=== PATIENT | male | born 1950 ===

== ENCOUNTER 2018-05-01 13:56 | Inpatient (IN) | payer MEDICARE, MEDICAID ==
[2018-05-01] MEDS ORDERED: Sodium Chloride 0.9% 1,000 ML IV ONE (14:38)
[2018-05-01] MEDS ORDERED: cefTRIAXone (Rocephin) 1 gm Inj ONE (15:10)
--- NOTE | 2018-05-01 15:11 | ED PDOC ---
HPI: Dental Pain/Injury Time Seen by Provider: 05/01/18 14:04 Chief Complaint (Nursing): Dental Pain Chief Complaint (Provider): Dental Pain History Per: Patient History/Exam Limitations: no limitations Onset/Duration Of Symptoms: Days (x7 days ago ) Current Symptoms Are (Timing): Still Present Additional Complaint(s): Patient is a 67 year old male who presents for evaluation of continuous facial swelling/pain and worsening dental infection since April 24. Patient was seen by PMD and was given a Rx for Keflex but he noticed no improvement with the medication. On April 28, he went to [facility] and they changed his antibiotics to Clindamycin and instructed him to take ibuprofen and discharged him. Patient presents to the emergency department today because his symptoms are worsening despite compliance with prescribed medications. Otherwise: (-) fever, (-) chills, (-) shortness of breath, (-) sore throat, (-) cough, (-) dizziness, (-) local trauma, (-) chest pain, (-) dyspnea (-) headache (-) earache (-) visual symptoms (-) difficulty swallowing or speaking PMD: Gene Schwartz Past Medical History Reviewed: Historical Data, Nursing Documentation, Vital Signs Vital Signs: Last Vital Signs Temp 97.6 F 05/01/18 13:59 Pulse 87 05/01/18 13:59 Resp 16 05/01/18 13:59 BP 119/78 05/01/18 13:59 Pulse Ox 98 05/01/18 13:59 - Medical History PMH: Atrial Fibrillation, COPD, Depression, Hepatitis, HTN, Pneumonia - Surgical History Surgical History: Coronary Stent, Pacemaker Other surgeries: defibrillator - Family History Family History: States: Unknown Family Hx - Social History Current smoker - smoking cessation education provided: No - Home Medications Home Medications: Ambulatory Orders Medication Instructions Recorded Carvedilol [Coreg] 12.5 mg PO Q12 05/01/18 Clindamycin [Cleocin] 300 mg PO Q8 05/01/18 Ibuprofen [Motrin Tab] 600 mg PO Q8 PRN 05/01/18 Oxymetazoline 0.05% [Afrin 0.05%] 2 spray CARTER Q12 PRN 05/01/18 Spironolactone [Aldactone] 25 mg PO DAILY 05/01/18 Zolpidem [Ambien] 10 mg PO HS 05/01/18 - Allergies Allergies/Adverse Reactions: Allergies Allergy/AdvReac Type Severity Reaction Status Date / Time No Known Allergies Allergy Verified 09/02/15 10:43 Review of Systems ROS Statement: Except As Marked, All Systems Reviewed And Found Negative Constitutional: Positive for: Other (facial swelling). Negative for: Fever, Chills Respiratory: Negative for: Cough, Shortness of Breath Neurological: Negative for: Headache, Dizziness Physical Exam - Reviewed Nursing Documentation Reviewed: Yes Vital Signs Reviewed: Yes - Physical Exam Comments: GENERAL APPEARANCE: Patient is awake, alert, oriented x 3, uncomfortable appearing. SKIN: Warm, dry; (-) cyanosis. ENMT: Large area of edema, erythema, induration, and warmth to the right side of face extending from the lateral eye orbit to the angle of the mandible to the right nare; Poor dentition throughout mouth; multiple cracked teeth with dental rot; (+) purulent drainage to right buccal mucosa (-) fluctuance. Pharynx: clear (-) tongue elevation, (-) exudate, (+) uvula midline. Airway patent: (-) stridor. (+) Decreased ROM of mandible. NECK: Supple, FROM RESPIRATORY: lungs clear to auscultation bilaterally (-) rales (-) rhonchi (-) wheezing. Speaking in full sentences, respirations nonlabored. CARDIAC: (-) irregularity - Laboratory Results Result Diagrams: 05/01/18 15:30 05/01/18 15:30 - ECG O2 Sat by Pulse Oximetry: 98 (RA) Pulse Ox Interpretation: Normal Medical Decision Making Medical Decision Making: Time: 14:30 Impression: facial cellulitis, dental abscess, rule out osteomyelitis of the mandible Plan: --CT maxillofacial with contrast, --CMP, lact acid, plasma --erythrocyte sedimentation rate --CBC with differential --Recephin 1 GM IV --Soidum chloride 1,000 ml --Vancomycin 1 GM IV --Blood culture --Toradol IVP 1620 Lactic acid WNL. CBC with leukocytosis, left shift. CMP with renal insufficiency and hyperkalemia. EKG ordered. CT changed to without contrast in light of renal function. Patient resting comfortably on re-evaluation in no distress. 1630 EKG: SR @ 90bpm (+) LAD (-) ST elevation, QTc 508 (+) occasional PVCs [address] FINDINGS: NASAL BONES: Unremarkable. ORBITS: Unremarkable. PARANASAL SINUSES/ MASTOIDS: There is mild mucosal thickening noted in the right maxillary sinus. MAXILLA: There is periodontal lucency seen in the right maxilla. No evidence of large bony destruction to suggest active osteomyelitis. MANDIBLE/ TEMPOROMANDIBULAR JOINTS: There are multiple periodontal lucency seen more prominent on the right. SKULL BASE: Unremarkable. TEMPORAL BONES: Middle ears and mastoid grossly unremarkable. OTHER FINDINGS: There are fluid collection and air noted adjacent to the right mandible and right maxillary bone suggestive of small abscess formation. Moderate soft tissue swelling and subcutaneous edema seen adjacent to the right mandible and right maxillary bone. IMPRESSION: Minute CT evidence of osteomyelitis. Multiple periodontal lucency seen in the right mandible and right maxillary bone suggestive of periodontal abscesses. Abscess formation noted adjacent to the right mandible and right maxillary bone associated with moderate subcutaneous soft tissue swelling and inflammatory changes. 17:[address] Figueredo, [facility] on-call. [address] Figueredo, agreeable to admission to telemetry. Requesting ID consult with Dr Rouse. Arrangements made for admission. Patient agreeable to admission. Vitals stable. Scribe Attestation: Documented by Ross Mcgowan, acting as a scribe for Rachelle Brantley. Provider Scribe Attestation: All medical record entries made by the Scribe were at my direction and personally dictated by me. I have reviewed the chart and agree that the record accurately reflects my personal performance of the history, physical exam, medical decision making, and the department course for this patient. I have also personally directed, reviewed, and agree with the discharge instructions and disposition. Disposition - Clinical Impression Clinical Impression: Dental abscess, Facial cellulitis, Dental infection, Renal insufficiency, Hyperkalemia - Patient ED Disposition Is Patient to be Admitted: Yes Discussed With : uyen Counseled Patient/Family Regarding: Studies Performed, Diagnosis - Disposition Disposition Time: 17:20 Condition: STABLE - Pt Status Changed To: Hospital Disposition Of: Inpatient - Admit Certification Admit to Inpatient:: After my assessment, the patient will require hospitalization for at least two midnights. This is because of the severity of symptoms shown, intensity of services needed, and/or the medical risk in this patient being treated as an outpatient. - POA Present On Arrival: None Results - Diagnostic Imaging Results Radiology Results Maxillofacial CT 05/01/18 16:18 IMPRESSION: Minute CT evidence of osteomyelitis. Multiple periodontal lucency seen in the right mandible and right maxillary bone suggestive of periodontal abscesses. Abscess formation noted adjacent to the right mandible and right maxillary bone associated with moderate subcutaneous soft tissue swelling and inflammatory changes.. - Lab Results Lab Results: 05/01/18 05/01/18 05/01/18 15:30 15:30 15:30 WBC 18.8 H RBC 5.37 Hgb 14.4 Hct 45.0 MCV 83.8 MCH 26.8 L MCHC 32.0 L RDW 15.4 H Plt Count 247 MPV 9.7 Neut % (Auto) 85.4 H Lymph % (Auto) 6.0 L [place] % (Auto) 6.5 Eos % (Auto) 1.6 Baso % (Auto) 0.5 Neut # (Auto) 16.0 H Lymph # (Auto) 1.1 [place] # (Auto) 1.2 H Eos # (Auto) 0.3 Baso # (Auto) 0.1 Neutrophils % (Manual) Pending Lymphocytes % (Manual) Pending Monocytes % (Manual) Pending Platelet Estimate Pending ESR Pending Sodium 134 Potassium 5.2 H Chloride 105 Carbon Dioxide 16 L Anion Gap 18 BUN 42 H Creatinine 2.7 H Est GFR ( Amer) 29 Est GFR (Non-Af Amer) 24 Random Glucose 250 H Lactic Acid 1.2 Calcium 9.0 Total Bilirubin 1.5 H AST 13 L ALT 19 L Alkaline Phosphatase 259 H Total Protein 8.1 Albumin 3.7 Globulin 4.4 H Albumin/Globulin Ratio 0.8 L
[2018-05-01 15:38] LABS: BASO # 0.1 K/uL (0.0-0.2); BASO % 0.5 % (0.0-2.0); EOS # 0.3 K/uL (0.0-0.7); EOS % 1.6 % (0.0-4.0); HEMOGLOBIN 14.4 g/dL (12.0-18.0); LYMPH # 1.1 K/uL (1.0-4.3); MEAN CELL VOLUME 83.8 fl (80.0-94.0); MEAN CORPUSCULAR HEMOGLOBIN 26.8 pg (27.0-31.0); MEAN PLATELET VOLUME 9.7 fl (7.2-11.7); MONO # 1.2 K/uL (0.0-0.8); MONO % 6.5 % (0.0-10.0); NEUT % 85.4 % (50.0-75.0); PLATELET COUNT 247 K/uL (130-400); RBC 5.37 Mil/uL (4.40-5.90); RED CELL DISTRIBUTION WIDTH 15.4 % (11.5-14.5); WHITE BLOOD COUNT 18.8 K/uL (4.8-10.8)
[2018-05-01 15:56] LABS: ALB/GLOB RATIO 0.8 (1.0-2.1); ALBUMIN 3.7 g/dL (3.5-5.0)
--- NOTE | 2018-05-01 17:05 | CT ---
Date of service: 05/01/2018 PROCEDURE: CT MAXILLOFACIAL BONES WITHOUT CONTRAST HISTORY: facial abscess/cellulitis, r/o osteo of mandible COMPARISON: None available. TECHNIQUE: Contiguous axial CT images of the maxillofacial bones were obtained. Coronal and sagittal reformats were generated. Radiation dose: Total exam DLP = 821.77 mGy-cm. This CT exam was performed using one or more of the following dose reduction techniques: Automated exposure control, adjustment of the mA and/or kV according to patient size, and/or use of iterative reconstruction technique. FINDINGS: NASAL BONES: Unremarkable. ORBITS: Unremarkable. PARANASAL SINUSES/ MASTOIDS: There is mild mucosal thickening noted in the right maxillary sinus. MAXILLA: There is periodontal lucency seen in the right maxilla. No evidence of large bony destruction to suggest active osteomyelitis. MANDIBLE/ TEMPOROMANDIBULAR JOINTS: There are multiple periodontal lucency seen more prominent on the right. SKULL BASE: Unremarkable. TEMPORAL BONES: Middle ears and mastoid grossly unremarkable. OTHER FINDINGS: There are fluid collection and air noted adjacent to the right mandible and right maxillary bone suggestive of small abscess formation. Moderate soft tissue swelling and subcutaneous edema seen adjacent to the right mandible and right maxillary bone. IMPRESSION: Minute CT evidence of osteomyelitis. Multiple periodontal lucency seen in the right mandible and right maxillary bone suggestive of periodontal abscesses. Abscess formation noted adjacent to the right mandible and right maxillary bone associated with moderate subcutaneous soft tissue swelling and inflammatory changes..
[2018-05-01] MEDS ORDERED: Vancomycin 1 g Inj ONE ×2 (17:08→17:21)
[2018-05-01 20:02] LABS: BANDS 1 % (0-2); BASOPHIL 1 % (0-2); EOSINOPHIL 2 % (0-7); LYMPHOCYTE 9 % (20-50); MONOCYTE 7 % (0-10); NEUTROPHIL 80 % (42-75); PLATELET ESTIMATE NORMAL (NORMAL); TOTAL CELLS COUNTED 100
[2018-05-01 20:03] LABS: TOXIC GRANULATION PRESENT
[2018-05-01 20:04] LABS: HYPOCHROMIC SLIGHT
[2018-05-01 20:58] LABS: ERYTHROCYTE SEDIMENTATION RATE 76 mm/hr (0-20)
[2018-05-01] MEDS: Sodium Chloride 0.9% 1,000 ML IV SCH (22:25)
[2018-05-02 05:42] LABS: HEMOGLOBIN 12.2 g/dL (12.0-18.0); MEAN CELL VOLUME 83.4 fl (80.0-94.0); MEAN CORPUSCULAR HEMOGLOBIN 26.7 pg (27.0-31.0); RBC 4.58 Mil/uL (4.40-5.90); RED CELL DISTRIBUTION WIDTH 15.2 % (11.5-14.5); WHITE BLOOD COUNT 12.4 K/uL (4.8-10.8)
[2018-05-02] MEDS: Sodium Chloride 0.9% 1,000 ML IV SCH ×3 (05:58→17:50)
[2018-05-02 06:05] LABS: ALB/GLOB RATIO 0.8 (1.0-2.1); ALBUMIN 2.8 g/dL (3.5-5.0); CALCIUM 8.1 mg/dL (8.4-10.2)
--- NOTE | 2018-05-02 06:21 | CARD ---
APPROVED REPORT Date of service: 05/01/2018 EKG Measurement Heart [id number] <Conclusion> Sinus rhythm with occasional premature ventricular complexes Left axis deviation Nonspecific intraventricular block Possible Lateral infarct, age undetermined Abnormal ECG
[2018-05-02] MEDS ORDERED: Sod Polystyrene Sulf 15 gm/60 ml Susp PO ONE (09:00)
--- NOTE | 2018-05-02 10:04 | CP.PCM.HP ---
History of Present Illness - History of Present Illness History of Present Illness: Pt is a 67 y/ male presenting to [facility] with complaints of right sided facial swelling and pain for the past 2 weeks. States he was evalauted by his PMD who gave him Keflex but it did not help to he went to [facility] and was given po Clindamycin. He states he only took this for one day and decided to come here since it was not improving. He reports feeling nasally congested and has had reduced difficulty swallowing food but no difficulty swallowing liquids. Otherwise denies SOB, CP, cough, fever/chills, mouth discharge, neck stiffness, headaches, n/v/d, dysuria, sick contacts or recent travel. PMD: Gene Schwartz PMHx: Afibb, CHF, COPD, HTN, Hepatic Cirrhosis, Cardiac pacemaker (placed 3 years ago), Depression Meds: Coreg, Aldactone, Ambien NKDA Social: Past hx of heavy alcohol, quit 8 years ago as per pt, former smoker 30pack years, denies illicit drug use Present on Admission - Present on Admission Any Indicators Present on Admission: No Past Patient History - Infectious Disease Hx of Infectious Diseases: None - Tetanus Immunizations Tetanus Immunization: Unknown - Past Medical History & Family History Past Medical History?: Yes - Past Social History Smoking Status: Former Smoker - CARDIAC Hx Cardiac Disorders: Yes Hx Atrial Fibrillation: Yes Hx Internal Defibrillator: Yes - PULMONARY Hx Respiratory Disorders: Yes Hx Chronic Obstructive Pulmonary Disease (COPD): Yes - NEUROLOGICAL Hx Neurological Disorder: No - HEENT Hx HEENT Problems: Yes Hx Cataracts: Yes - RENAL Hx Chronic Kidney Disease: No - ENDOCRINE/METABOLIC Hx Endocrine Disorders: Yes Hx Diabetes Mellitus Type 2: Yes - HEMATOLOGICAL/ONCOLOGICAL Hx Blood Disorders: Yes Hx AIDS: No Hx Cirrhosis: Yes Hx Human Immunodeficiency Virus (HIV): No - INTEGUMENTARY Hx Dermatological Problems: No - MUSCULOSKELETAL/RHEUMATOLOGICAL Hx Musculoskeletal Disorders: No Hx Falls: No - GASTROINTESTINAL Hx Gastrointestinal Disorders: Yes Other/Comment: Cirrhosis, HCV - GENITOURINARY/GYNECOLOGICAL Hx Genitourinary Disorders: No - PSYCHIATRIC Hx Psychophysiologic Disorder: Yes Hx Depression: Yes Hx Substance Use: No - SURGICAL HISTORY Hx Surgeries: Yes Hx Coronary Stent: Yes - ANESTHESIA Hx Anesthesia: Yes Hx Anesthesia Reactions: No Hx Malignant Hyperthermia: No Meds Allergies/Adverse Reactions: Allergies Allergy/AdvReac Type Severity Reaction Status Date / Time No Known Allergies Allergy Verified 09/02/15 10:43 Physical Exam - Constitutional Appears: No Acute Distress - Head Exam Head Exam: NORMAL INSPECTION - Eye Exam Eye Exam: Normal appearance. absent: Nystagmus, Periorbital swelling, Scleral icterus - ENT Exam ENT Exam: Mucous Membranes Moist Additional comments: Moderately enlarged right facial swelling, erythema, warmth and diffuse tenderness along the mandible and extending to maxillary bone. Mildly fluctuant. Buccal mucosa notable for mucosal swelling, erythema, and white patchy exudates, foul odor breath, poor dentition with multiple missing teeth. No periorbital or orbital swelling. TMJ- Full ROM, limited with pain - Neck Exam Neck exam: Positive for: Full Rom. Negative for: Meningismus - Respiratory Exam Respiratory Exam: Clear to Auscultation Bilateral, Rales, Wheezes Additional comments: Pacemaker noted - Cardiovascular Exam Cardiovascular Exam: REGULAR RHYTHM, +S1, +S2. absent: Systolic Murmur - GI/Abdominal Exam GI & Abdominal Exam: Normal Bowel Sounds, Soft. absent: Tenderness - Extremities Exam Extremities exam: Positive for: normal inspection - Neurological Exam Neurological exam: Alert, Oriented x3 - Psychiatric Exam Psychiatric exam: Normal Affect - Skin Skin Exam: Normal Color Results - Vital Signs Recent Vital Signs: Last Vital Signs Temp 97.6 F 05/02/18 08:11 Pulse 86 05/02/18 08:45 Resp 20 05/02/18 08:11 BP 128/77 05/02/18 08:45 Pulse Ox 98 05/02/18 08:11 - Labs Result Diagrams: 05/02/18 04:25 05/02/18 04:25 Labs: Laboratory Results - last 24 hr 05/01/18 05/01/18 05/01/18 15:30 15:30 15:30 WBC 18.8 H RBC 5.37 Hgb 14.4 Hct 45.0 MCV 83.8 MCH 26.8 L MCHC 32.0 L RDW 15.4 H Plt Count 247 MPV 9.7 Neut % (Auto) 85.4 H Lymph % (Auto) 6.0 L [place] % (Auto) 6.5 Eos % (Auto) 1.6 Baso % (Auto) 0.5 Neut # (Auto) 16.0 H Lymph # (Auto) 1.1 [place] # (Auto) 1.2 H Eos # (Auto) 0.3 Baso # (Auto) 0.1 Neutrophils % (Manual) 80 H Band Neutrophils % 1 Lymphocytes % (Manual) 9 L Monocytes % (Manual) 7 Eosinophils % (Manual) 2 Basophils % (Manual) 1 Toxic Granulation Present Platelet Estimate Normal Hypochromasia (manual) Slight ESR 76 H Sodium 134 Potassium 5.2 H Chloride 105 Carbon Dioxide 16 L Anion Gap 18 BUN 42 H Creatinine 2.7 H Est GFR ( Amer) 29 Est GFR (Non-Af Amer) 24 POC Glucose (mg/dL) Random Glucose 250 H Lactic Acid 1.2 Calcium 9.0 Total Bilirubin 1.5 H AST 13 L ALT 19 L Alkaline Phosphatase 259 H Total Protein 8.1 Albumin 3.7 Globulin 4.4 H Albumin/Globulin Ratio 0.8 L Triglycerides Cholesterol LDL Cholesterol Direct HDL Cholesterol 05/01/18 05/02/18 05/02/18 21:43 04:25 04:25 WBC 12.4 H RBC 4.58 Hgb 12.2 D Hct 38.2 MCV 83.4 MCH 26.7 L MCHC 32.0 L RDW 15.2 H Plt Count 207 MPV Neut % (Auto) Lymph % (Auto) [place] % (Auto) Eos % (Auto) Baso % (Auto) Neut # (Auto) Lymph # (Auto) [place] # (Auto) Eos # (Auto) Baso # (Auto) Neutrophils % (Manual) Band Neutrophils % Lymphocytes % (Manual) Monocytes % (Manual) Eosinophils % (Manual) Basophils % (Manual) Toxic Granulation Platelet Estimate Hypochromasia (manual) ESR Sodium 136 Potassium 5.1 H Chloride 108 H Carbon Dioxide 17 L Anion Gap 16 BUN 43 H Creatinine 2.5 H Est GFR ( Amer) 32 Est GFR (Non-Af Amer) 26 POC Glucose (mg/dL) 196 H Random Glucose 201 H Lactic Acid Calcium 8.1 L Total Bilirubin 1.1 AST 9 L D ALT 16 L Alkaline Phosphatase 180 H D Total Protein 6.3 Albumin 2.8 L D Globulin 3.5 Albumin/Globulin Ratio 0.8 L Triglycerides 186 H Cholesterol 116 LDL Cholesterol Direct 76 HDL Cholesterol 16 L Assessment & Plan - Assessment and Plan (Free Text) Assessment: 67 y/o male admitted with Periodontal Abscess confirmed on Maxillofacial CT, EMILIANO, Hyperkalemia -ENT consulted -General Surgery Consulted -Leukocytosis improving, ESR 76 -Kayexelate 30mg, repeat BMP in afternoon -EMILIANO likely pre-renal in setting of poor po intake, Nephrology consulted -IV fluids NS 125cc/hr -C/W empiric ABx coverage- Vanco and Zosyn. S/P Rocephin x1 in ED -ID Consulted, Dr. Rouse -Puried diet, Swallow eval ordered -Home meds resumed D/W Dr. Figueredo
--- NOTE | 2018-05-02 13:00 | CP.PCM.CON ---
History of Present Illness - History of Present Illness History of Present Illness: Patient is a 67 years of age male who presented to the emergency room with right facial swelling that has been increasing and getting worse and seen in the emergency room given antibiotics Keflex couple days ago and then when he visited the emergency room he was given clindamycin as well. And the CAT scan was suspicious of osteomyelitis and . Was called to see this patient for abnormal kidney function. Which noted rising BUN and creatinine. Patient is not aware about past medical history related to chronic or acute kidney disease. Patient stated that he was diabetic but is no longer taking medication for diabetes. PMHx: Afibb, CHF, COPD, HTN, Hepatic Cirrhosis, Cardiac device (pacemaker/defibrillator?) (placed 3 years ago), Depression Meds: Coreg, Aldactone, Ambien NKDA Social: Past hx of heavy alcohol, quit 8 years ago as per pt, former smoker 30pack years, denies illicit drug use abscess Review of Systems - Constitutional Constitutional: Anorexia. absent: Chills - EENT Eyes: absent: Exophthalmos Nose/Mouth/Throat: As Per HPI, Sinus Pressure. absent: Epistaxis, Post Nasal Drip Additional comments: Right facial swollen completely - Cardiovascular Cardiovascular: absent: Acrocyanosis, Dyspnea, Edema, Palpitations - Respiratory Respiratory: absent: Cough, Dyspnea - Gastrointestinal Gastrointestinal: absent: Abdominal Pain, Coffee Ground Emesis, Vomiting - Genitourinary Genitourinary: Nocturia - Neurological Neurological: absent: Syncope - Hematologic/Lymphatic Hematologic: absent: Easy Bleeding Past Patient History - Infectious Disease Hx of Infectious Diseases: None - Tetanus Immunizations Tetanus Immunization: Unknown - Past Medical History & Family History Past Medical History?: Yes - Past Social History Smoking Status: Former Smoker - CARDIAC Hx Cardiac Disorders: Yes Hx Atrial Fibrillation: Yes Hx Internal Defibrillator: Yes - PULMONARY Hx Respiratory Disorders: Yes Hx Chronic Obstructive Pulmonary Disease (COPD): Yes - NEUROLOGICAL Hx Neurological Disorder: No - HEENT Hx HEENT Problems: Yes Hx Cataracts: Yes - RENAL Hx Chronic Kidney Disease: No - ENDOCRINE/METABOLIC Hx Endocrine Disorders: Yes Hx Diabetes Mellitus Type 2: Yes - HEMATOLOGICAL/ONCOLOGICAL Hx Blood Disorders: Yes Hx AIDS: No Hx Cirrhosis: Yes Hx Human Immunodeficiency Virus (HIV): No - INTEGUMENTARY Hx Dermatological Problems: No - MUSCULOSKELETAL/RHEUMATOLOGICAL Hx Musculoskeletal Disorders: No Hx Falls: No - GASTROINTESTINAL Hx Gastrointestinal Disorders: Yes Other/Comment: Cirrhosis, HCV - GENITOURINARY/GYNECOLOGICAL Hx Genitourinary Disorders: No - PSYCHIATRIC Hx Psychophysiologic Disorder: Yes Hx Depression: Yes Hx Substance Use: No - SURGICAL HISTORY Hx Surgeries: Yes Hx Coronary Stent: Yes - ANESTHESIA Hx Anesthesia: Yes Hx Anesthesia Reactions: No Hx Malignant Hyperthermia: No Meds Allergies/Adverse Reactions: Allergies Allergy/AdvReac Type Severity Reaction Status Date / Time No Known Allergies Allergy Verified 09/02/15 10:43 - Medications Medications: Current Medications Carvedilol (Coreg) 12.5 mg PO Q12 [facility] Last Admin: 05/02/18 08:45 Dose: 12.5 mg Heparin Sodium (Porcine) (Heparin) 5,000 units SC Q12 [facility]; Protocol Vancomycin HCl 1 gm/ Sodium (Chloride) 250 mls @ 166.667 mls/hr IVPB DAILY [facility]; Protocol Last Admin: 05/02/18 10:28 Dose: 166.667 mls/hr Sodium Chloride (Sodium Chloride 0.9%) 1,000 mls @ 125 mls/hr IV .Q8H [facility] Last Admin: 05/02/18 08:49 Dose: 125 mls/hr Piperacillin Sod/Tazobactam (Sod 2.25 gm/ Sodium Chloride) 100 mls @ 100 mls/hr IVPB Q8 [facility]; Protocol Last Admin: 05/02/18 08:50 Dose: 100 mls/hr Ketorolac Tromethamine (Toradol) 30 mg IVP Q6 PRN PRN Reason: Pain, moderate (4-7) Morphine Sulfate (Morphine) 2 mg IVP Q6 PRN PRN Reason: Pain, severe (8-10) Last Admin: 05/02/18 01:00 Dose: 2 mg Oxymetazoline HCl (Nasal Decongestant 15 Ml) 2 spr NS Q12 [facility] Last Admin: 05/02/18 10:27 Dose: 2 spr Spironolactone (Aldactone) 25 mg PO DAILY [facility] Last Admin: 05/02/18 08:46 Dose: 25 mg Physical Exam - Constitutional Appears: No Acute Distress - Eye Exam Eye Exam: absent: Conjunctival injection - ENT Exam ENT Exam: Mucous Membranes Moist Additional comments: Right facial swollen and tenderness and firm - Neck Exam Neck exam: Negative for: Thyromegaly - Respiratory Exam Respiratory Exam: NORMAL BREATHING PATTERN. absent: Chest Wall Tenderness - Cardiovascular Exam Cardiovascular Exam: absent: Gallop, JVD, Rubs - GI/Abdominal Exam GI & Abdominal Exam: Normal Bowel Sounds. absent: Guarding - Extremities Exam Extremities exam: Negative for: calf tenderness, pedal edema, tenderness - Back Exam Back exam: absent: CVA tenderness (L), CVA tenderness (R) - Neurological Exam Neurological exam: Alert - Psychiatric Exam Psychiatric exam: Normal Affect Results - Vital Signs Recent Vital Signs: Last Vital Signs Temp 98.3 F 05/02/18 12:25 Pulse 69 05/02/18 12:25 Resp 20 05/02/18 12:25 BP 135/79 05/02/18 12:25 Pulse Ox 99 05/02/18 12:25 - Labs Result Diagrams: 05/02/18 04:25 05/02/18 04:25 Labs: Laboratory Results - last 24 hr 05/01/18 05/01/18 05/01/18 15:30 15:30 15:30 WBC 18.8 H RBC 5.37 Hgb 14.4 Hct 45.0 MCV 83.8 MCH 26.8 L MCHC 32.0 L RDW 15.4 H Plt Count 247 MPV 9.7 Neut % (Auto) 85.4 H Lymph % (Auto) 6.0 L [place] % (Auto) 6.5 Eos % (Auto) 1.6 Baso % (Auto) 0.5 Neut # (Auto) 16.0 H Lymph # (Auto) 1.1 [place] # (Auto) 1.2 H Eos # (Auto) 0.3 Baso # (Auto) 0.1 Neutrophils % (Manual) 80 H Band Neutrophils % 1 Lymphocytes % (Manual) 9 L Monocytes % (Manual) 7 Eosinophils % (Manual) 2 Basophils % (Manual) 1 Toxic Granulation Present Platelet Estimate Normal Hypochromasia (manual) Slight ESR 76 H Sodium 134 Potassium 5.2 H Chloride 105 Carbon Dioxide 16 L Anion Gap 18 BUN 42 H Creatinine 2.7 H Est GFR ( Amer) 29 Est GFR (Non-Af Amer) 24 POC Glucose (mg/dL) Random Glucose 250 H Lactic Acid 1.2 Calcium 9.0 Total Bilirubin 1.5 H GGT AST 13 L ALT 19 L Alkaline Phosphatase 259 H Total Protein 8.1 Albumin 3.7 Globulin 4.4 H Albumin/Globulin Ratio 0.8 L Triglycerides Cholesterol LDL Cholesterol Direct HDL Cholesterol Random Vancomycin 05/01/18 05/02/18 05/02/18 21:43 04:25 04:25 WBC 12.4 H RBC 4.58 Hgb 12.2 D Hct 38.2 MCV 83.4 MCH 26.7 L MCHC 32.0 L RDW 15.2 H Plt Count 207 MPV Neut % (Auto) Lymph % (Auto) [place] % (Auto) Eos % (Auto) Baso % (Auto) Neut # (Auto) Lymph # (Auto) [place] # (Auto) Eos # (Auto) Baso # (Auto) Neutrophils % (Manual) Band Neutrophils % Lymphocytes % (Manual) Monocytes % (Manual) Eosinophils % (Manual) Basophils % (Manual) Toxic Granulation Platelet Estimate Hypochromasia (manual) ESR Sodium 136 Potassium 5.1 H Chloride 108 H Carbon Dioxide 17 L Anion Gap 16 BUN 43 H Creatinine 2.5 H Est GFR ( Amer) 32 Est GFR (Non-Af Amer) 26 POC Glucose (mg/dL) 196 H Random Glucose 201 H Lactic Acid Calcium 8.1 L Total Bilirubin 1.1 GGT 63 AST 9 L D ALT 16 L Alkaline Phosphatase 180 H D Total Protein 6.3 Albumin 2.8 L D Globulin 3.5 Albumin/Globulin Ratio 0.8 L Triglycerides 186 H Cholesterol 116 LDL Cholesterol Direct 76 HDL Cholesterol 16 L Random Vancomycin 05/02/18 05/02/18 05/02/18 05:21 11:11 12:05 WBC RBC Hgb Hct MCV MCH MCHC RDW Plt Count MPV Neut % (Auto) Lymph % (Auto) [place] % (Auto) Eos % (Auto) Baso % (Auto) Neut # (Auto) Lymph # (Auto) [place] # (Auto) Eos # (Auto) Baso # (Auto) Neutrophils % (Manual) Band Neutrophils % Lymphocytes % (Manual) Monocytes % (Manual) Eosinophils % (Manual) Basophils % (Manual) Toxic Granulation Platelet Estimate Hypochromasia (manual) ESR Sodium Potassium Chloride Carbon Dioxide Anion Gap BUN Creatinine Est GFR ( Amer) Est GFR (Non-Af Amer) POC Glucose (mg/dL) 203 H 238 H Random Glucose Lactic Acid Calcium Total Bilirubin GGT AST ALT Alkaline Phosphatase Total Protein Albumin Globulin Albumin/Globulin Ratio Triglycerides Cholesterol LDL Cholesterol Direct HDL Cholesterol Random Vancomycin 12.1 Assessment & Plan (1) EMILIANO (acute kidney injury) Assessment and Plan: Rule out acute kidney injury most likely related to multifactorial including antibiotic, cellulitis, abscess Hyperkalemia related to the above serum potassium borderline Dental abscess Mellitus of the right face osteomyelitis ? Recommendation and plan To get stat vancomycin level Adjust antibiotics as per renal dose Discussed with the nurse practitioner Start spot urine for sodium osmolarity and creatinine Stat urinalysis Status: Acute (2) Dental abscess Status: Acute (3) Dental infection Status: Acute (4) Facial cellulitis Status: Acute
--- NOTE | 2018-05-02 13:14 | CP.PCM.CON ---
History of Present Illness - History of Present Illness History of Present Illness: 67 year old male who presents for evaluation of continuous facial swelling/pain and worsening dental infection since April 24.Patient presents to the emergency department because his symptoms are worsening despite compliance with prescribed medications including Keflex then Clinda ID consulted for this - Medical History PMH: Atrial Fibrillation, COPD, Depression, Hepatitis, HTN, Pneumonia - Surgical History Surgical History: Coronary Stent, Pacemaker Other surgeries: defibrillator Review of Systems - Review of Systems All systems: reviewed and no additional remarkable complaints except - Constitutional Constitutional: As Per HPI, Anorexia, Chills. absent: Fever - EENT Eyes: absent: As Per HPI, Blind Spots, Blurred Vision, Change in Vision, Decreased Night Vision, Diplopia, Discharge, Dry Eye, Exophthalmos, Floaters, Irritation, Itchy Eyes, Loss of Peripheral Vision, Pain, Photophobia, Requires Corrective Lenses, Sees Flashes, Spots in Vision, Tunnel Vision, Other Visual Disturbances, Loss of Vision, Other Ears: absent: As Per HPI, Decreased Hearing, Ear Discharge, Ear Pain, Tinnitus, Abnormal Hearing, Disequilibrium, Dizziness, Other Nose/Mouth/Throat: As Per HPI - Cardiovascular Cardiovascular: absent: As Per HPI, Acrocyanosis, Chest Pain, Chest Pain at Rest, Chest Pain with Activity, Claudication, Diaphoresis, Dyspnea, Dyspnea on Exertion, Edema, Irregular Heart Rhythm, Pain Radiating to Arm/Neck/Jaw, Leg Edema, Leg Ulcers, Lightheadedness, Orthopnea, Palpitations, Paroxysmal Nocturnal Dyspnea, Pedal Edema, Radiating Pain, Rapid Heart Rate, Slow Heart Rate, Syncope, Other - Respiratory Respiratory: absent: As Per HPI, Cough, Dyspnea, Hemoptysis, Dyspnea on Exertion, Wheezing, Snoring, Stridor, Pain on Inspiration, Chest Congestion, Excessive Mucous Production, Change in Mucous Color, Pain with Coughing, Other - Gastrointestinal Gastrointestinal: absent: As Per HPI, Abdominal Pain, Belching, Bloating, Change in Bowel Habits, Change in Stool Character, Coffee Ground Emesis, Constipation, Cramping, Diarrhea, Dyspepsia, Dysphagia, Early Satiety, Excessive Flatus, Fecal Incontinence, Heartburn, Hematemesis, Hematochezia, Loose Stools, Melena, Nausea, Odynophagia, Temesmus, Vomiting, Other - Genitourinary Genitourinary: absent: As Per HPI, Change in Urinary Stream, Difficulty Urinating, Dysuria, Flank Pain, Hematuria, Pyuria, Nocturia, Urinary Incontinence, Urinary Frequency, Urinary Hesitance, Urinary Urgency, Voiding Freq/Small Amts, Freq UTI, Hx Renal/Bladder Calculi, Hx /Renal Surgery, Bladder Distension, Other - Musculoskeletal Musculoskeletal: absent: As Per HPI, Abnormal Gait, Arthralgias, Atrophy, Back Pain, Deformity, Joint Swelling, Limited Range of Motion, Loss of Height, Muscle Cramps, Muscle Weakness, Myalgias, Neck Pain, Numbness, Radiating Pain into Limb, Stiffness, Tingling, Other - Integumentary Integumentary: absent: As Per HPI, Acne, Alopecia, Bleeding Lesions, Change in Hair, Change in Nails, Change in Pigmentation, Changing Lesions, Dry Skin, Erythema, Furuncle, Hirsutism, Lesions, New Lesions, Non-Healing Lesions, Phot osensitivity, Pruritus, Rash, Skin Pain, Skin Ulcer, Sores, Striae, Swelling, Unusual Bruising, Wounds, Jaundice, Other - Neurological Neurological: absent: As Per HPI, Abnormal Gait, Abnormal Hearing, Abnormal Movements, Abnormal Speech, Behavioral Changes, Burning Sensations, Confusion, Convulsions, Disequilibrium, Dizziness, Numbness, Focal Weakness, Frequent Falls, Headaches, Lack of Coordination, Loss of Vision, Memory Loss, Paresthesias, Radicular Pain, Restless Legs, Sensory Deficit, Syncope, Tingling, Tremor, Vertigo, Weakness, Other Visual Disturbances, Other - Psychiatric Psychiatric: absent: As Per HPI, Abnormal Sleep Pattern, Anhedonia, Anxiety, Auditory Hallucinations, Behavioral Changes, Change in Appetite, Change in Libido, Confusion, Depression, Difficulty Concentrating, Hallucinations, Homicidal Ideation, Hopelessness, Irritability, Memory Loss, Mood Swings, Panic Attacks, Paranoia, Suicidal Ideation, Visual Hallucinations, Tactile Hallucinations, Other - Endocrine Endocrine: absent: As Per HPI, Change in Body Appearance, Change in Libido, Cold Intolorance, Deepening of Voice, Excessive Sweating, Fatigue, Flushing, Heat Intolorance, Increase in Ring/Shoe/Hat Size, Palpitations, Polydipsia, Polyphagia, Polyuria, Other - Hematologic/Lymphatic Hematologic: absent: As Per HPI, Easy Bleeding, Easy Bruising, Lymphadenopathy, Other Past Patient History - Infectious Disease Hx of Infectious Diseases: None - Tetanus Immunizations Tetanus Immunization: Unknown - Past Medical History & Family History Past Medical History?: Yes - Past Social History Smoking Status: Former Smoker - CARDIAC Hx Cardiac Disorders: Yes Hx Atrial Fibrillation: Yes Hx Internal Defibrillator: Yes - PULMONARY Hx Respiratory Disorders: Yes Hx Chronic Obstructive Pulmonary Disease (COPD): Yes - NEUROLOGICAL Hx Neurological Disorder: No - HEENT Hx HEENT Problems: Yes Hx Cataracts: Yes - RENAL Hx Chronic Kidney Disease: No - ENDOCRINE/METABOLIC Hx Endocrine Disorders: Yes Hx Diabetes Mellitus Type 2: Yes - HEMATOLOGICAL/ONCOLOGICAL Hx Blood Disorders: Yes Hx AIDS: No Hx Cirrhosis: Yes Hx Human Immunodeficiency Virus (HIV): No - INTEGUMENTARY Hx Dermatological Problems: No - MUSCULOSKELETAL/RHEUMATOLOGICAL Hx Musculoskeletal Disorders: No Hx Falls: No - GASTROINTESTINAL Hx Gastrointestinal Disorders: Yes Other/Comment: Cirrhosis, HCV - GENITOURINARY/GYNECOLOGICAL Hx Genitourinary Disorders: No - PSYCHIATRIC Hx Psychophysiologic Disorder: Yes Hx Depression: Yes Hx Substance Use: No - SURGICAL HISTORY Hx Surgeries: Yes Hx Coronary Stent: Yes - ANESTHESIA Hx Anesthesia: Yes Hx Anesthesia Reactions: No Hx Malignant Hyperthermia: No Meds Allergies/Adverse Reactions: Allergies Allergy/AdvReac Type Severity Reaction Status Date / Time No Known Allergies Allergy Verified 09/02/15 10:43 - Medications Medications: Current Medications Carvedilol (Coreg) 12.5 mg PO Q12 [facility] Last Admin: 05/02/18 08:45 Dose: 12.5 mg Heparin Sodium (Porcine) (Heparin) 5,000 units SC Q12 [facility]; Protocol Vancomycin HCl 1 gm/ Sodium (Chloride) 250 mls @ 166.667 mls/hr IVPB DAILY [facility]; Protocol Last Admin: 05/02/18 10:28 Dose: 166.667 mls/hr Sodium Chloride (Sodium Chloride 0.9%) 1,000 mls @ 125 mls/hr IV .Q8H [facility] Last Admin: 05/02/18 08:49 Dose: 125 mls/hr Piperacillin Sod/Tazobactam (Sod 2.25 gm/ Sodium Chloride) 100 mls @ 100 mls/hr IVPB Q8 [facility]; Protocol Last Admin: 05/02/18 08:50 Dose: 100 mls/hr Ketorolac Tromethamine (Toradol) 30 mg IVP Q6 PRN PRN Reason: Pain, moderate (4-7) Morphine Sulfate (Morphine) 2 mg IVP Q6 PRN PRN Reason: Pain, severe (8-10) Last Admin: 05/02/18 01:00 Dose: 2 mg Oxymetazoline HCl (Nasal Decongestant 15 Ml) 2 spr NS Q12 [facility] Last Admin: 05/02/18 10:27 Dose: 2 spr Spironolactone (Aldactone) 25 mg PO DAILY [facility] Last Admin: 05/02/18 08:46 Dose: 25 mg Results - Vital Signs Recent Vital Signs: Last Vital Signs Temp 98.3 F 05/02/18 12:25 Pulse 69 05/02/18 12:25 Resp 20 05/02/18 12:25 BP 135/79 05/02/18 12:25 Pulse Ox 99 05/02/18 12:25 - Labs Result Diagrams: 05/02/18 04:25 05/02/18 04:25 Labs: Laboratory Results - last 24 hr 05/01/18 05/01/18 05/01/18 15:30 15:30 15:30 WBC 18.8 H RBC 5.37 Hgb 14.4 Hct 45.0 MCV 83.8 MCH 26.8 L MCHC 32.0 L RDW 15.4 H Plt Count 247 MPV 9.7 Neut % (Auto) 85.4 H Lymph % (Auto) 6.0 L [place] % (Auto) 6.5 Eos % (Auto) 1.6 Baso % (Auto) 0.5 Neut # (Auto) 16.0 H Lymph # (Auto) 1.1 [place] # (Auto) 1.2 H Eos # (Auto) 0.3 Baso # (Auto) 0.1 Neutrophils % (Manual) 80 H Band Neutrophils % 1 Lymphocytes % (Manual) 9 L Monocytes % (Manual) 7 Eosinophils % (Manual) 2 Basophils % (Manual) 1 Toxic Granulation Present Platelet Estimate Normal Hypochromasia (manual) Slight ESR 76 H Sodium 134 Potassium 5.2 H Chloride 105 Carbon Dioxide 16 L Anion Gap 18 BUN 42 H Creatinine 2.7 H Est GFR ( Amer) 29 Est GFR (Non-Af Amer) 24 POC Glucose (mg/dL) Random Glucose 250 H Lactic Acid 1.2 Calcium 9.0 Total Bilirubin 1.5 H GGT AST 13 L ALT 19 L Alkaline Phosphatase 259 H Total Protein 8.1 Albumin 3.7 Globulin 4.4 H Albumin/Globulin Ratio 0.8 L Triglycerides Cholesterol LDL Cholesterol Direct HDL Cholesterol Random Vancomycin 05/01/18 05/02/18 05/02/18 21:43 04:25 04:25 WBC 12.4 H RBC 4.58 Hgb 12.2 D Hct 38.2 MCV 83.4 MCH 26.7 L MCHC 32.0 L RDW 15.2 H Plt Count 207 MPV Neut % (Auto) Lymph % (Auto) [place] % (Auto) Eos % (Auto) Baso % (Auto) Neut # (Auto) Lymph # (Auto) [place] # (Auto) Eos # (Auto) Baso # (Auto) Neutrophils % (Manual) Band Neutrophils % Lymphocytes % (Manual) Monocytes % (Manual) Eosinophils % (Manual) Basophils % (Manual) Toxic Granulation Platelet Estimate Hypochromasia (manual) ESR Sodium 136 Potassium 5.1 H Chloride 108 H Carbon Dioxide 17 L Anion Gap 16 BUN 43 H Creatinine 2.5 H Est GFR ( Amer) 32 Est GFR (Non-Af Amer) 26 POC Glucose (mg/dL) 196 H Random Glucose 201 H Lactic Acid Calcium 8.1 L Total Bilirubin 1.1 GGT 63 AST 9 L D ALT 16 L Alkaline Phosphatase 180 H D Total Protein 6.3 Albumin 2.8 L D Globulin 3.5 Albumin/Globulin Ratio 0.8 L Triglycerides 186 H Cholesterol 116 LDL Cholesterol Direct 76 HDL Cholesterol 16 L Random Vancomycin 05/02/18 05/02/18 05/02/18 05:21 11:11 12:05 WBC RBC Hgb Hct MCV MCH MCHC RDW Plt Count MPV Neut % (Auto) Lymph % (Auto) [place] % (Auto) Eos % (Auto) Baso % (Auto) Neut # (Auto) Lymph # (Auto) [place] # (Auto) Eos # (Auto) Baso # (Auto) Neutrophils % (Manual) Band Neutrophils % Lymphocytes % (Manual) Monocytes % (Manual) Eosinophils % (Manual) Basophils % (Manual) Toxic Granulation Platelet Estimate Hypochromasia (manual) ESR Sodium Potassium Chloride Carbon Dioxide Anion Gap BUN Creatinine Est GFR ( Amer) Est GFR (Non-Af Amer) POC Glucose (mg/dL) 203 H 238 H Random Glucose Lactic Acid Calcium Total Bilirubin GGT AST ALT Alkaline Phosphatase Total Protein Albumin Globulin Albumin/Globulin Ratio Triglycerides Cholesterol LDL Cholesterol Direct HDL Cholesterol Random Vancomycin 12.1 Assessment & Plan (1) Periodontal abscess Status: Acute - Assessment and Plan (Free Text) Assessment: await ENT and OMFS eval will need drainage of abscesses and extraction of impacted molars cannot r/o OM of mandible / maxilla may need ocean transportation intermediary antibiotic rx consider transfer to tertiary care facility due to multiple co-morbidities and in situ PPM
--- NOTE | 2018-05-02 15:01 | CP.PCM.PCO ---
Assessment & Plan - Assessment and Plan (Free Text) Assessment: Case D/w ENT who is recommending transfer pt. to Tertiatry facility for abscess drain w/ maxillofacial sx [facility] transfer center contacted at [phone] and spoke with coordinator Case d/w Oral sx Residency who will not accept patient under his service and does not feel the need to drain based on clinical hx/ Recommended to speak to Medicine service Case d/w Hospitalist Dr. Mcfarlane who is recommending speak directly to [facility] At [phone] and will accept patient pending their recommendation notified
[2018-05-02 15:05] LABS: SQUAMOUS EPITHIAL < 1 /hpf (0-5); URINE BILIRUBIN NEGATIVE (NEGATIVE); URINE BLOOD NEGATIVE (NEGATIVE); URINE CLARITY CLEAR (Clear); URINE COLOR YELLOW (YELLOW); URINE GLUCOSE (UA) NEG (NEGATIVE); URINE LEUKOCYTE ESTERASE NEG Leu/uL (Negative); URINE PROTEIN NEGATIVE (NEGATIVE)
[2018-05-02 15:24] LABS: CREATININE, RANDOM URINE 57.9 mg/dL
[2018-05-02] MEDS ORDERED: Glucagon Recombinant 1 mg Inj IM PRN (15:48)
[2018-05-02] MEDS ORDERED: Dextrose 50% SYRINGE Inj (50 ml) IV PRN (15:48)
[2018-05-02 16:05] VITALS: BP 144/81; PULSE 86; RESP 18; TEMP 98.2; O2SAT 96
--- NOTE | 2018-05-02 16:20 | CP.PCM.PCO ---
Assessment/Plan - Assessment and Plan (Free Text) Assessment: Periodontal abscess Plan: Discussed with Dr. Santillan, surgical oncology, who states this should be referred to ENT/OMFS as he does not manage these cases. Attempt to contact Dr. Figueredo to notify. Discussed with ABHISHEK Martinez who states she will cancel general surgery consult. Patient has been accepted to [facility] in [place] for OMFS evaluation and further treatment. [facility] PGY4
[2018-05-02] MEDS ORDERED: Insulin Regular 100 units/ml SC SCH (16:30)
--- NOTE | 2018-05-04 16:12 | PQF ---
PROVIDER RESPONSE TEXT: Provider was unable to determine a response for this query. REVIEWER QUERY TEXT: Heart Failure Acuity and Type Hx of Congestive Heart Failure is documented in the H and P in Medical Record. Please document the t ype and acuity: Type: -- Combined systolic and diastolic (heart failure with reduced ejection fraction and diastolic) dysfu nction -- Diastolic (HFpEF) -- Systolic (HFrEF) -- Left heart failure -- Right heart failure -- Right heart failure due to left heart failure -- High output failure -- End stage heart failure -- Other, please specify Acuity: -- Acute -- Chronic -- Acute on chronic -- Other, please specify H and P: Respiratory: Exam: Clear to Auscultation Bilateral, Rales, Wheezes Renal consult: Extremities exam: Negative for: pedal edema -aldactone, coreg The patient's Clinical Indicators include: -- Query created by: Venus Logan on 05/02/2018 3:16 PM Electronically signed by: Gene Figueredo 05/04/2018 4:10 PM
--- NOTE | 2018-05-04 16:12 | PQF ---
PROVIDER RESPONSE TEXT: Chronic a fib REVIEWER QUERY TEXT: Atrial Fibrillation Type Hx. of Atrial fibrillation is documented in the Medical Record. Please specify the type: if known: v ersus No A-fib: hx. only and not chronic etc. Such as: -- Chronic -- Paroxysmal -- Permanent -- Persistent -- Other, please specify H and P: Hx Atrial Fibrillation: Yes -coreg The patient's Clinical Indicators include: -- Query created by: Venus Logan 05/02/2018 3:12 PM Electronically signed by: Gene Figueredo 05/04/2018 4:10 PM
--- NOTE | 2018-05-04 16:12 | PQF ---
PROVIDER RESPONSE TEXT: Provider was unable to determine a response for this query. REVIEWER QUERY TEXT: Clarification of Clinical Diagnostic Findings Please clarify if OM of the Mandible/Maxilla should be coded OR: Unable to determine OR: Other explanation of clinical finding H and P: admitted with Periodontal Abscess confirmed on Maxillofacial CT, EMILIANO, Hyperkalemia -ENT cons ulted -General Surgery Consulted -Leukocytosis improving, ESR 76 -Kayexelate 30mg, repeat BMP in afte rnoon ---EMILIANO likely pre-renal in setting of poor po intake, Nephrology consulted -IV fluids NS 125cc/ hr -C/W empiric ABx coverage- Vanco and Zosyn. S/P Rocephin x1 in ED ID consult include:-- cannot r/o OM of mandible / maxilla: may need terminal carman antibiotic rx 1. Perio dontal abscess Status: Acute Assessment :await ENT and OMFS eval will need drainage of abscesses a nd extraction of impacted molars consider transfer to tertiary care facility due to multiple co-morb idities and in situ PPM Renal consult: includes: CAT scan was suspicious of osteomyelitis --Patient stated that he was diabet ic but is no longer taking medication for diabetes. Rule out acute kidney injury most likely related to multifactorial including antibiotic, cellulitis, abscess Hyperkalemia related to the above serum potassium borderline Dental abscess Mellitus of the right face osteomyelitis ? The patient's Clinical Indicators include: -- Query created by: Venus Logan on 05/03/2018 8:17 AM Electronically signed by: Gene Figueredo 05/04/2018 4:10 PM
== END 2018-05-02 19:57 | disposition short-term general hospital (02) | DRG 158 ==
LOC: H.ER 13:56 → H.ERHOLD 17:14 → H.TEL 21:36
PROVIDERS: ADMIT Family Medicine; ATTEND Family Medicine
DX: K05.219 Aggressive periodontitis, localized, unspecified severity (principal); L03.211 Cellulitis of face; N17.9 Acute kidney failure, unspecified; K04.7 Periapical abscess without sinus; E87.5 Hyperkalemia; I11.0 Hypertensive heart disease with heart failure; I50.9 Heart failure, unspecified; J44.9 Chronic obstructive pulmonary disease, unspecified; F32.9 Major depressive disorder, single episode, unspecified; Z95.0 Presence of cardiac pacemaker; Z87.891 Personal history of nicotine dependence; Z95.5 Presence of coronary angioplasty implant and graft; K74.60 Unspecified cirrhosis of liver; I48.2 Chronic atrial fibrillation; E11.9 Type 2 diabetes mellitus without complications